=== PATIENT | female | born 1935 | race Caucasian/White ===

== ENCOUNTER 2020-09-26 14:06 | Emergency (ER) | payer BC, MEDICARE ==
[2020-09-26] MEDS ORDERED: Lidocaine 1% 20 ML MDV INFILT ONE (14:07)
--- NOTE | 2020-09-26 14:58 | EDM.PDOC ---
ED HPI GENERAL MEDICAL PROBLEM - General Chief Complaint: Laceration Stated Complaint: FALL THIS AM Time Seen by Provider: 09/26/20 14:20 Source of Information: Reports: Patient History Limitations: Reports: No Limitations - History of Present Illness INITIAL COMMENTS - FREE TEXT/NARRATIVE: 84-year-old female who states she was getting her mail [place] person's [place] and the sidewalk was very uneven and she misstepped and tripped falling forward and landing on her knees and then face planning. She states there was no loss of consciousness but she was dazed and she has continued to feel somewhat dazed since then with some mild nausea. She reports this occurred approximately 9:45 AM. She had bleeding from her forehead and also from ridge of her nose. She has some scrapes on both of her knees but she has been ambulatory without really much pain in her knees. She does report that the pain in her face is sharp and stinging pain that is sore and she rates that as a 4/10. It is worse with palpation. She has no vision problems. She has continued nausea but no vomiting. She has some neck pain posteriorly. No abdominal pain. No back pain. She presents via a neighbor via private vehicle from her home. There are no other associated signs or symptoms. There are no other modifying factors. 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 Surgical history as detailed below.) - Infectious Disease History Infectious Disease History: Reports: Chicken Pox, Shingles - Past Surgical History HEENT Surgical History: Reports: Tonsillectomy GI Surgical History: Reports: Appendectomy Musculoskeletal Surgical History: Reports: Carpal Tunnel (Bilateral carpal tunnel release) Social & Family History - Tobacco Use Tobacco Use Status *Q: Never Tobacco User - Caffeine Use Caffeine Use: Reports: None - Alcohol Use Alcohol Use History: No - Recreational Drug Use Recreational Drug Use: No - Living Situation & Occupation Occupation: Retired ED ROS GENERAL - Review of Systems Review Of Systems: See Below Constitutional: Reports: No Symptoms HEENT: Reports: Nose Pain Respiratory: Reports: No Symptoms Cardiovascular: Reports: No Symptoms Endocrine: Reports: No Symptoms GI/Abdominal: Reports: Nausea : Reports: No Symptoms Musculoskeletal: Reports: Neck Pain Skin: Reports: Wound (Superficial laceration to the right supraorbital forehead and the bridge of the nose.) Neurological: Reports: Headache, Other (Dazed) Psychiatric: Reports: No Symptoms Hematologic/Lymphatic: Reports: No Symptoms Immunologic: Reports: Other (It is been greater than 5 years since her last tetanus immunization.) ED EXAM, SKIN/RASH Exam: See Below Exam Limited By: No Limitations General Appearance: Alert, WD/WN, Moderate Distress Eye Exam: Bilateral Eye: EOMI, Normal Inspection, PERRL Ears: Normal External Exam, Hearing Grossly Normal Nose: Normal Mucosa, No Blood, Nasal Tenderness, Nasal Swelling Throat/Mouth: Normal Inspection, Normal Oropharynx, Normal Voice, No Airway Compromise Head: Normocephalic, Facial Swelling, Facial Tenderness Neck: Normal Inspection, Tender Midline Respiratory/Chest: No Respiratory Distress, Lungs Clear, Normal Breath Sounds, No Accessory Muscle Use, Chest Non-Tender Cardiovascular: Normal Peripheral Pulses, Regular Rate, Rhythm, No Murmur Peripheral Pulses: 2+: Radial (L), Radial (R) GI/Abdominal: Normal Bowel Sounds, Soft, Non-Tender Back Exam: Normal Inspection Extremities: Normal Range of Motion, No Pedal Edema, Normal Capillary Refill, Other (Tenderness to both anterior knees with no crepitus. Minor abrasions here.) Neurological: Alert, Oriented, CN II-XII Intact, Normal Cognition, No Motor/Sensory Deficits Skin: Warm, Dry, No Rash, Wound/Incision (On supraorbital forehead on the right and bridge of nose. The nasal laceration is 1 cm. The supraorbital laceration on the right is 2.5 cm.) Location, Skin: Face Characteristics: Linear ED SKIN PROCEDURES - Laceration/Wound Repair Right Forehead Appearance: Superficial, Mildly Contaminated Distal NVT: Neuro & Vascular Intact Anesthetic Type: Local Local Anesthesia - Lidocaine (Xylocaine): 1% Plain Local Anesthetic Volume: 3cc Skin Prep: Saline Saline Irrigation (cc's): 100 Exploration/Debridement/Repair: No Foreign Material Found Closed with: Sutures Lac/Wound length In cm: 2.5 Suture Size: 5-0 # of Sutures: 3 Suture Type: Nylon, Interrupted, Simple Sterile Dressing Applied: Nurse Tetanus Status Addressed: Yes (Patient was given a Tdap immunization to bring her tetanus immunization status up-to-date.) Complications: No Midline Nose Appearance: Superficial Distal NVT: Neuro & Vascular Intact Anesthetic Type: Local Local Anesthesia - Lidocaine (Xylocaine): 1% Plain Local Anesthetic Volume: 2cc Skin Prep: Saline Saline Irrigation (cc's): 100 Exploration/Debridement/Repair: No Foreign Material Found Closed with: Sutures Lac/Wound length In cm: 1 Suture Size: 5-0 # of Sutures: 2 Suture Type: Nylon, Interrupted, Simple Sterile Dressing Applied: Nurse Tetanus Status Addressed: Yes Complications: No Course - Vital Signs Last Recorded V/S: Last Vital Signs Temp 36.7 C 09/26/20 14:32 Pulse 66 09/26/20 17:10 Resp 20 09/26/20 17:10 BP 154/70 H 09/26/20 17:10 Pulse Ox 100 09/26/20 17:10 - Orders/Labs/Meds Orders: Active Orders 24 hr Category Date Time Status Cervical Spine wo Cont [CT] Stat Exams 09/26/20 14:58 Taken Head wo Cont [CT] Stat Exams 09/26/20 14:58 Taken Max Facial Sinus wo Cont [CT] Stat Exams 09/26/20 14:58 Taken Meds: Medications Discontinued Medications Generic Name Dose Route Start Last Admin Trade Name Freq PRN Reason Stop Dose Admin Acetaminophen 1,000 mg 09/26/20 15:25 09/26/20 16:19 Acetaminophen 500 Mg Tab PO 09/26/20 15:26 1,000 mg ONETIME ONE Administration Bacitracin 1 dose 09/26/20 15:00 09/26/20 16:19 Bacitracin Oint 1 Gm U/D Packet TOP 09/26/20 15:01 1 dose ONETIME ONE Administration Diphtheria/Tetanus/Acell Pertussis 0.5 ml 09/26/20 14:59 09/26/20 16:20 Diphtheria,Pertussis(Acell),Tetanus Vaccine 0.5 Ml Syringe IM 09/26/20 15:00 0.5 ml .ONCE ONE Administration - Radiology Interpretation Free Text/Narrative:: CT scan of head showed no evidence of hemorrhage mass effect or infarction. No fractures. This was per the [facility] radiologist. CT scan of cervical spine showed no acute osseous injuries identified per the [facility] radiologist. CT scan of face showed no acute fracture per the [facility] radiologist. - Re-Assessments/Exams Free Text/Narrative Re-Assessment/Exam: 09/26/20 16:15: The patient has remained awake, alert and appropriate. She is neurologically and hemodynamically stable. The CT scans of her head and cervical spine were normal. The CT scan of the patient's face is still pending at this time. 09/26/20 17:03: The patient remains neurologically and hemodynamically stable. The CT scan of her face showed no fractures. He is stable and ready for discharge at this point. Precautions and reasons for return to the emergency department were discussed with the patient while she was in the emergency department and reduced children the patient's discharge instructions. Departure - Departure Time of Disposition: 17:05 Disposition: Home, Self-Care 01 Condition: Good (Improved.) Clinical Impression: Fall on same level from tripping Facial contusion Qualifiers: Encounter type: initial encounter Qualified Code(s): S00.83XA - Contusion of other part of head, initial encounter Face lacerations Qualifiers: Encounter type: initial encounter Qualified Code(s): S01.81XA - Laceration without foreign body of other part of head, initial encounter Knee contusion Qualifiers: Encounter type: initial encounter Laterality: unspecified laterality Qualified Code(s): S80.00XA - Contusion of unspecified knee, initial encounter - Discharge Information Instructions: Facial or Scalp Contusion, [id number], Contusion, [id number], Head Injury, Adult, [id number], Sutures, Yojana, or Adhesive Wound Closure, [id number] Referrals: PCP,None [Primary Care Provider] - Forms: ED Department Discharge Additional Instructions: The CAT scans of your head, neck and face showed no fracture or bleeding. You can take Tylenol or ibuprofen as needed for pain. Apply ice packs intermittently to the bruised areas for the next few days. Keep your head elevated as much as possible for the next few days. Do not get the wounds wet on your face for the next 3 days. You can clean the areas with a Cloth. After 3 days, you may get the wounds wet but do not immerse the wounds and water until the sutures are out. Suture removal in 7 days. To the emergency department for marked increase in pain, redness, increased swelling, unrelenting vomiting or any other concerning signs or symptoms. You were given a Tdap immunization today to bring your tetanus immunization status up-to-date. Sepsis Event Note (ED) - Evaluation Sepsis Screening Result: No Definite Risk - My Orders Last 24 Hours: My Active Orders 09/26/20 14:58 Cervical Spine wo Cont [CT] Stat Head wo Cont [CT] Stat Max Facial Sinus wo Cont [CT] Stat - Assessment/Plan Last 24 Hours: My Active Orders 09/26/20 14:58 Cervical Spine wo Cont [CT] Stat Head wo Cont [CT] Stat Max Facial Sinus wo Cont [CT] Stat
[2020-09-26] MEDS ORDERED: Diphtheria,Pertussis(Acell),Tetanus Vaccine 0.5 ML Syringe IM ONE (14:59)
[2020-09-26] MEDS ORDERED: Bacitracin Oint 1 GM U/D Packet TOP ONE (15:00)
[2020-09-26] MEDS ORDERED: Acetaminophen 500 MG Tab PO ONE (15:25)
== END 2020-09-26 17:13 | disposition home or self-care (01) ==
LOC: FB.ED 14:06
DX: S01.81XA Laceration without foreign body of other part of head, initial encounter (principal); S01.21XA Laceration without foreign body of nose, initial encounter; S80.02XA Contusion of left knee, initial encounter; S80.01XA Contusion of right knee, initial encounter; Z23 Encounter for immunization; W01.0XXA Fall on same level from slipping, tripping and stumbling without subsequent striking against object, initial encounter
CPT/HCPCS: 12013; 70450; 70486; 72125; 90471; 90715; 99283; A9270

== ENCOUNTER 2022-04-06 15:51 | Emergency (ER) | payer MEDICARE | END 2022-04-06 18:03 | disposition home or self-care (01) | LOC: FB.ED 15:51 | DX: S52.502A Unspecified fracture of the lower end of left radius, initial encounter for closed fracture (principal); Z90.49 Acquired absence of other specified parts of digestive tract; W07.XXXA Fall from chair, initial encounter | CPT/HCPCS: 29125; 73110-LT; 99283 ==